=== PATIENT | female | born 1990 | race Two or more races ===

== ENCOUNTER 2021-06-13 13:00 | Emergency (ER) | payer MEDICAID, OTHER ==
[~2021-06-13] VITALS: Ht 154.9 cm; Wt 59.0 kg
[2021-06-13 14:52] VITALS: BP 139/94
== END 2021-06-13 15:11 | disposition home or self-care (01) ==
LOC: ER 13:00
DX: S60.861A Insect bite (nonvenomous) of right wrist, initial encounter (principal); S40.862A Insect bite (nonvenomous) of left upper arm, initial encounter; W57.XXXA Bitten or stung by nonvenomous insect and other nonvenomous arthropods, initial encounter; Y93.89 Activity, other specified; Y92.89 Other specified places as the place of occurrence of the external cause; Y99.8 Other external cause status

== ENCOUNTER 2022-05-26 18:37 | Emergency (ER) | payer MEDICAID ==
[~2022-05-26] VITALS: Ht 152.4 cm; Wt 56.4 kg
[2022-05-26] MEDS ORDERED: IOHEXOL 300 MG/ML 100ML BOTTLE IJ ONE (22:59)
[2022-05-27] MEDS ORDERED: HYDROcodone-ACET 5/325MG TAB PO ONE (00:15)
[2022-05-27] MEDS ORDERED: ONDANSETRON ODT 4 MG TAB PO ONE (00:15)
[2022-05-27 00:57] VITALS: BP 134/73
[2022-05-27] MEDS ORDERED: ACE3T PO (00:58)
== END 2022-05-27 01:02 | disposition home or self-care (01) ==
LOC: ER 18:37
DX: L03.211 Cellulitis of face (principal); I10 Essential (primary) hypertension; R42 Dizziness and giddiness
CPT/HCPCS: 70487; 99285; Q0162; Q9967

== ENCOUNTER 2023-01-26 12:18 | Emergency (ER) | payer MEDICAID ==
[~2023-01-26] VITALS: Ht 149.9 cm; Wt 62.1 kg
[~2023-01-26 12:18] MED LIST: ACE3T PO
[2023-01-26 13:45] LABS: Basophils # (auto) 0 10 ^3/uL (0-0.2); Basophils % (auto) 0.6 % (0.0-2.0); Eosinophils # (auto) 0.4 10 ^3/uL (0-0.8); Eosinophils % (auto) 5.5 % (0.0-7.0); Hematocrit 41.1 % (36.0-46.0); Hemoglobin 14.2 g/dL (12.2-16.2); Lymphocytes % (auto) 25.2 % (10.0-50.0); Mean Corpuscular Hemoglobin 29.8 pg (28.0-32.0); Mean Corpuscular Hgb Conc. 34.5 g/dL (32.0-36.0); Mean Corpuscular Volume 86.2 fL (80.0-100.0); Monocytes # (auto) 0.5 10 ^3/uL (0-1.3); Monocytes % (auto) 5.9 % (0.0-12.0); Neutrophils % (auto) 62.8 % (37.0-80.0); Red Blood Cells 4.77 10^6/uL (4.0-5.20); Red Cell Distribution Width 13.1 % (11.8-14.3)
[2023-01-26 14:16] LABS: Potassium 4.1 mmol/L (3.5-5.1)
[2023-01-26 14:30] LABS: Albumin 4.1 g/dL (3.4-5.0); Bilirubin, Total 0.4 mg/dL (0.2-1.0); Total Protein 8.1 g/dL (6.4-8.2)
[2023-01-26] MEDS ORDERED: IOHEXOL 350 MG/ML 100ML IJ ONE (15:13)
[2023-01-26 20:56] VITALS: BP 137/94
== END 2023-01-26 21:05 | disposition home or self-care (01) ==
LOC: ER 12:18
DX: F41.9 Anxiety disorder, unspecified (principal); R06.00 Dyspnea, unspecified; I10 Essential (primary) hypertension; Z90.710 Acquired absence of both cervix and uterus; Z20.822 Contact with and (suspected) exposure to COVID-19
CPT/HCPCS: 36415; 71275; 80053; 83880; 84484; 85025; 85379; 87426; 93005; 99285; Q9967

== ENCOUNTER 2023-07-06 21:26 | Emergency (ER) | payer MEDICAID ==
[~2023-07-06] VITALS: Ht 149.9 cm; Wt 62.0 kg
[2023-07-06 22:38] LABS: Basophils # (auto) 0 10 ^3/uL (0-0.2); Basophils % (auto) 0.6 % (0.0-2.0); Eosinophils # (auto) 0.3 10 ^3/uL (0-0.8); Eosinophils % (auto) 5.3 % (0.0-7.0); Hematocrit 33.8 % (36.0-46.0); Hemoglobin 11.8 g/dL (12.2-16.2); Lymphocytes # (auto) 2.1 10 ^3/uL (0.4-5.4); Lymphocytes % (auto) 34.8 % (10.0-50.0); Mean Corpuscular Hemoglobin 30.1 pg (28.0-32.0); Mean Corpuscular Volume 86.1 fL (80.0-100.0); Monocytes # (auto) 0.5 10 ^3/uL (0-1.3); Monocytes % (auto) 7.6 % (0.0-12.0); Neutrophils # (auto) 3.2 10 ^3/uL (1.6-8.6); Neutrophils % (auto) 51.7 % (37.0-80.0); Nucleated Red Blood Cells % 0.1 %; Red Blood Cells 3.92 10^6/uL (4.0-5.20); Red Cell Distribution Width 13.7 % (11.8-14.3); White Blood Cell 6.2 10^3/uL (4.4-10.8)
[2023-07-06 22:56] LABS: Alanine Aminotransferase 18 U/L (7-40); Albumin 4.5 g/dL (3.2-4.8); Alkaline Phosphatase 71 U/L (46-116); Anion Gap 6.2 (5-15); Aspartate Aminotransferase 16 U/L (13-40); BUN/Creatinine Ratio 10.9 (10.0-20.0); Blood Urea Nitrogen 7 mg/dL (9-23); Calcium 9.2 mg/dL (8.7-10.4); Carbon Dioxide 27.8 mmol/L (20-30); Chloride 104 mmol/L (98-107); Glucose 110 mg/dL (74-106); Potassium 3.9 mmol/L (3.5-5.1); Sodium 138 mmol/L (136-145)
[2023-07-06 22:57] LABS: Bilirubin, Total 0.2 mg/dL (0.2-1.0); Total Protein 7.3 g/dL (5.7-8.2)
[2023-07-07 00:28] LABS: Rapid Influenza A Negative (Negative); Rapid Influenza B Negative (Negative)
[2023-07-07 00:30] LABS: COVID19 ANTIGEN SOFIA FIA POSITIVE (NEGATIVE)
[2023-07-07] MEDS ORDERED: DexAMETHasone SOD PHOS 10MG/1ML VIAL INJ IM ONE (01:00)
[2023-07-07] MEDS ORDERED: DEX4T PO (01:48)
[2023-07-07 02:06] VITALS: BP 138/95; TEMP 97.6; O2SAT 99
[2023-07-07 02:07] VITALS: PULSE 74; RESP 18
== END 2023-07-07 02:08 | disposition home or self-care (01) ==
LOC: ER 21:26
DX: U07.1 COVID-19 (principal); R10.2 Pelvic and perineal pain; E78.5 Hyperlipidemia, unspecified; I10 Essential (primary) hypertension; Z90.49 Acquired absence of other specified parts of digestive tract; Z90.710 Acquired absence of both cervix and uterus
CPT/HCPCS: 36415; 71045; 80053; 84484; 84702; 85025; 87426; 87804; 93005; 99285; J1100

== ENCOUNTER 2023-10-18 18:12 | Emergency (ER) | payer MEDICAID ==
[~2023-10-18] VITALS: Ht 149.9 cm; Wt 65.3 kg
[~2023-10-18 18:12] MED LIST changes: +DEX4T PO
[2023-10-18 18:23] VITALS: BP 123/83; PULSE 94; RESP 18; O2SAT 99
== END 2023-10-18 21:16 | disposition left against medical advice (07) ==
LOC: ER 18:12
DX: M79.10 Myalgia, unspecified site (principal); Z53.21 Procedure and treatment not carried out due to patient leaving prior to being seen by health care provider

== ENCOUNTER 2024-02-16 17:44 | Emergency (ER) | payer MEDICAID ==
[~2024-02-16] VITALS: Ht 149.9 cm; Wt 67.9 kg
[2024-02-16 19:53] LABS: Basophils # (auto) 0.1 10 ^3/uL (0-0.2); Basophils % (auto) 0.7 % (0.0-2.0); Eosinophils # (auto) 0.2 10 ^3/uL (0-0.8); Eosinophils % (auto) 2.2 % (0.0-7.0); Hematocrit 35.6 % (36.0-46.0); Hemoglobin 12.2 g/dL (12.2-16.2); Lymphocytes # (auto) 2.7 10 ^3/uL (0.4-5.4); Lymphocytes % (auto) 25.5 % (10.0-50.0); Mean Corpuscular Hgb Conc. 34.2 g/dL (32.0-36.0); Mean Corpuscular Volume 84.9 fL (80.0-100.0); Monocytes # (auto) 0.4 10 ^3/uL (0-1.3); Neutrophils # (auto) 7.2 10 ^3/uL (1.6-8.6); Neutrophils % (auto) 67.6 % (37.0-80.0); Red Blood Cells 4.19 10^6/uL (4.0-5.20); Red Cell Distribution Width 13.8 % (11.8-14.3); White Blood Cell 10.7 10^3/uL (4.4-10.8)
[2024-02-16 20:04] LABS: Alanine Aminotransferase 22 U/L (7-40); Albumin 4.7 g/dL (3.2-4.8); Alkaline Phosphatase 88 U/L (46-116); Anion Gap 7 (5-15); Aspartate Aminotransferase 17 U/L (13-40); BUN/Creatinine Ratio 13.8 (10.0-20.0); Blood Urea Nitrogen 8 mg/dL (9-23); Calcium 10.4 mg/dL (8.7-10.4); Carbon Dioxide 25 mmol/L (20-30); Chloride 104 mmol/L (98-107); Glucose 95 mg/dL (74-106); Lipase 34 U/L (12-53); Potassium 3.7 mmol/L (3.5-5.1); Sodium 136 mmol/L (136-145)
[2024-02-16 20:05] LABS: Bilirubin, Total 0.3 mg/dL (0.2-1.0); Total Protein 7.8 g/dL (5.7-8.2)
[2024-02-16] MEDS ORDERED: ONDANSETRON HCL 4 MG/2 ML VIAL IV ONE (21:00)
[2024-02-16] MEDS ORDERED: MORPHINE SULFATE 4 MG/ML SYR/VIAL IV ONE (21:00)
[2024-02-16] MEDS ORDERED: SODIUM CHLORIDE 0.9% 1,000 ML IV ONE (21:00)
[2024-02-16 21:18] LABS: Urine WBC None Seen /hpf (0 - 5)
[2024-02-16 21:54] LABS: Urine Amorphous Crystal FEW /hpf (None Seen); Urine Bacteria FEW /hpf (None Seen); Urine Blood Negative /uL (Negative); Urine Clarity Clear (Clear); Urine Color Colorless (Yellow); Urine Protein, UAD Negative (Negative); Urine Specific Gravity 1.003 (1.001-1.035); Urine Urobilinogen Normal (Negative); Urine pH 5.5 (5.0-9.0)
[2024-02-16] MEDS ORDERED: HYDR-4902 PO (22:03)
[2024-02-16] MEDS ORDERED: BACL10TA PO (22:03)
[2024-02-16] MEDS ORDERED: AUG875T PO (22:06)
[2024-02-16] MEDS ORDERED: ZOFR4T PO (22:08)
[2024-02-16 23:27] VITALS: BP 136/93; PULSE 86; RESP 20; TEMP 97.9; O2SAT 100
[2024-02-16] MEDS: ONDANSETRON ODT 4 MG TAB PO ONE (23:32)
[2024-02-16] MEDS: HYDROcodone-ACET 5/325MG TAB PO ONE (23:32)
== END 2024-02-16 23:33 | disposition home or self-care (01) ==
LOC: ER 17:44
DX: K57.90 Diverticulosis of intestine, part unspecified, without perforation or abscess without bleeding (principal); M62.830 Muscle spasm of back; E78.5 Hyperlipidemia, unspecified; I10 Essential (primary) hypertension; Z90.49 Acquired absence of other specified parts of digestive tract; Z32.02 Encounter for pregnancy test, result negative; Z90.710 Acquired absence of both cervix and uterus
CPT/HCPCS: 36415; 74176; 80053; 81001; 81025; 83690; 85025; 99284; Q0162